=== PATIENT | female | born 1945 | race Caucasian/White ===

== ENCOUNTER 2018-04-04 10:36 | Outpatient (POV) | END 2018-04-04 17:00 | LOC: OUTPT 10:36 | PROVIDERS: ATTEND Otolaryngology | DX: H91.90 Unspecified hearing loss, unspecified ear (principal); H69.90 Unspecified Eustachian tube disorder, unspecified ear ==

== ENCOUNTER 2018-04-11 14:23 | Outpatient (CLI) | END 2018-04-11 14:24 | disposition home or self-care (01) | LOC: RHC-LAB 14:23 | PROVIDERS: ATTEND Otolaryngology | DX: H92.11 Otorrhea, right ear (principal) | CPT/HCPCS: 87070 ==

== ENCOUNTER 2018-04-18 10:41 | Outpatient (POV) | END 2018-04-18 17:00 | LOC: OUTPT 10:41 | PROVIDERS: ATTEND Otolaryngology | DX: H91.90 Unspecified hearing loss, unspecified ear (principal) | CPT/HCPCS: 92552 ==